=== PATIENT | female | born 1980 | race African-American/Black ===

== ENCOUNTER 2020-06-15 12:17 | Emergency (ER) | payer OTHER ==
[~2020-06-15 12:17] MED LIST: FLONASE ALLER15.8 ML; PREDNISONE 20MG20 MG PO; PROAIR HFA8.5 GM INH; TESSALON PERLE100 MG PO
[2020-06-15 13:46] LABS: BASOPHIL 0.5 % (0-2); EOSINOPHIL 2.5 % (0-5); HCT 37.6 % (37.0-47.0); HGB 12.8 g/dl (12.5-16.0); LYMPHOCYTE 32.1 % (15-48); MCH 31.8 pg (25.0-31.0); MCV 93.3 fL (78.0-100.0); MONOCYTE 6.9 % (0-12); MPV 9.5 fL (6.0-9.5); NEUTROPHIL 57.6 % (41-80); NRBC 0; PLT 227 K/uL (150-400); RBC 4.03 M/uL (4.20-5.40); RDW 13.3 % (11.5-14.0); WBC 10.3 K/uL (4.0-10.5)
[2020-06-15 14:13] LABS: BILIRUBIN 2+ mg/dL (NEGATIVE); BLOOD 3+ Ery/uL (NEGATIVE); CLARITY CLOUDY (CLEAR); COLOR YELLOW (YELLOW); GLUCOSE (U) NORMAL (NORMAL); LEUKOCYTES NEGATIVE Leu/uL (NEGATIVE); NITRITE NEGATIVE (NEGATIVE); PROTEIN TRACE (LOW) mg/dL (NEGATIVE); SPECIFIC GRAVITY >=1.030 (1.001-1.030)
[2020-06-15 14:28] LABS: ALBUMIN 3.2 g/dL (3.4-5.0); BILIRUBIN - TOTAL 0.3 mg/dL (0.2-1.0); BUN/CREAT RATIO (CALC) 17.8 RATIO; CREATININE 0.73 mg/dL (0.51-0.95); GLOBULIN (CALCULATION) 3.2 g/dL; POTASSIUM 3.5 mmol/L (3.5-5.1); TOTAL PROTEIN 6.4 g/dL (6.4-8.2)
[2020-06-15 14:36] LABS: BACTERIA 2+; MUCOUS MODERATE; SQUAMOUS EPITHELIAL CELLS >50
[2020-06-15] MEDS ORDERED: MACROBID100 MG PO (14:54)
== END 2020-06-15 15:24 | disposition home or self-care (01) ==
LOC: FER 12:17
PROVIDERS: Emergency Medicine
DX: I87.2 Venous insufficiency (chronic) (peripheral) (principal); N39.0 Urinary tract infection, site not specified; F17.200 Nicotine dependence, unspecified, uncomplicated
CPT/HCPCS: 36415; 71046; 80053; 81001; 84443; 85025

== ENCOUNTER 2020-06-28 20:39 | Emergency (ER) | payer OTHER ==
[~2020-06-28 20:39] MED LIST changes: +MACROBID100 MG PO
[2020-06-28 21:50] LABS: HCT 40.1 % (37.0-47.0); HGB 13.6 g/dl (12.5-16.0); MCH 32.2 pg (25.0-31.0); MCHC 33.9 g/dL (32.0-36.0); MPV 9.5 fL (6.0-9.5); NEUTROPHIL 64.1 % (41-80); PLT 241 K/uL (150-400); RBC 4.22 M/uL (4.20-5.40); RDW 13.6 % (11.5-14.0); WBC 10.7 K/uL (4.0-10.5)
[2020-06-28 21:51] LABS: BASOPHIL 0.4 % (0-2); LYMPHOCYTE 25.5 % (15-48); MONOCYTE 7.4 % (0-12); NRBC 0
[2020-06-28 22:20] LABS: ALBUMIN 3.2 g/dL (3.4-5.0); BILIRUBIN - TOTAL 0.3 mg/dL (0.2-1.0); BUN/CREAT RATIO (CALC) 24.4 RATIO; CREATININE 0.78 mg/dL (0.51-0.95); GLOBULIN (CALCULATION) 3.3 g/dL; POTASSIUM 3.7 mmol/L (3.5-5.1); TOTAL PROTEIN 6.5 g/dL (6.4-8.2)
[2020-06-28] MEDS ORDERED: CEPHALEXIN500 M1 PO (23:43)
== END 2020-06-29 | disposition home or self-care (01) ==
LOC: FER 20:39
PROVIDERS: Nurse Practitioner Family
DX: R60.0 Localized edema (principal); L03.116 Cellulitis of left lower limb; L03.115 Cellulitis of right lower limb
CPT/HCPCS: 36415; 80053; 83880; 85025; 99284

== ENCOUNTER → 2021-08-25 | Day surgery (SDC) | payer OTHER ==
[~2021-08-25] VITALS: Ht 162.6 cm; Wt 95.7 kg
[~2021-08-25] MED LIST changes: +AMOXICILLIN500 M2 PO; +CEPHALEXIN500 M1 PO; +MOTRIN600 MG PO; +PROMETHAZINE HC25 M1 PO
[2021-08-25 07:07] LABS: HCG (URINE) SCREEN NEGATIVE (NEGATIVE)
[2021-08-25 07:33] LABS: BASOPHIL 0.4 % (0-2); EOSINOPHIL 2.3 % (0-5); HCT 40.6 % (37.0-47.0); HGB 13.7 g/dl (12.5-16.0); MCH 30.9 pg (25.0-31.0); MCHC 33.7 g/dL (32.0-36.0); MCV 91.6 fL (78.0-100.0); MONOCYTE 6.2 % (0-12); NEUTROPHIL 50.6 % (41-80); NRBC 0; PLT 266 K/uL (150-400); RBC 4.43 M/uL (4.20-5.40); RDW 12.3 % (11.5-14.0); WBC 9.2 K/uL (4.0-10.5)
== END | disposition home or self-care (01) ==
LOC: FAS 06:31
PROVIDERS: Oral & Maxillofacial Surgery
DX: K02.9 Dental caries, unspecified (principal); K04.7 Periapical abscess without sinus; K01.1 Impacted teeth; F17.200 Nicotine dependence, unspecified, uncomplicated
CPT/HCPCS: D7140; D7210; D7310; 36415; 84703; 85025; 93005; J1100; J1170; J1885; J2250; J2405; J2704; J3010; J7120